=== PATIENT | male | born 1990 | race Two or more races ===

== ENCOUNTER 2019-07-30 09:23 | Emergency (ER) | payer OTHER ==
[~2019-07-30] VITALS: Ht 175.3 cm; Wt 81.6 kg
[2019-07-30] MEDS ORDERED: SODIUM CHLORIDE 0.9% 1,000 ML IV ONE ×2 (09:40)
[2019-07-30 10:34] LABS: Basophils # (auto) 0.1 10 ^3/uL (0-0.2); Basophils % (auto) 0.8 % (0.0-2.0); Eosinophils # (auto) 0.2 10 ^3/uL (0-0.8); Eosinophils % (auto) 1.9 % (0.0-7.0); Hematocrit 47.6 % (41.0-53.0); Hemoglobin 16.1 g/dL (13.5-17.5); Lymphocytes % (auto) 9.2 % (10.0-50.0); Mean Corpuscular Hemoglobin 28.6 pg (28.0-32.0); Mean Corpuscular Hgb Conc. 33.7 g/dL (32.0-36.0); Mean Corpuscular Volume 84.7 fL (80.0-100.0); Monocytes # (auto) 0.7 10 ^3/uL (0-1.3); Monocytes % (auto) 5.8 % (0.0-12.0); Neutrophils # (auto) 9.3 10 ^3/uL (1.6-8.6); Neutrophils % (auto) 82.3 % (37.0-80.0); Nucleated Red Blood Cells % 0.6 %; Platelet Count (auto) 335 10^3/uL (140-450); Red Blood Cells 5.62 10^6/uL (4.5-5.90); Red Cell Distribution Width 13.5 % (11.8-14.3); White Blood Cell 11.3 10^3/uL (4.4-10.8)
[2019-07-30 10:49] LABS: Albumin 4.3 g/dL (3.4-5.0); Calcium 8.8 mg/dL (8.5-10.1); Potassium 3.5 mmol/L (3.5-5.1)
[2019-07-30 10:52] LABS: BUN/Creatinine Ratio 8.2; Bilirubin, Total 0.6 mg/dL (0.2-1.0); Total Protein 8.4 g/dL (6.4-8.2)
[2019-07-30 14:02] VITALS: BP 126/82
== END 2019-07-30 14:26 | disposition home or self-care (01) ==
LOC: ER 09:23
DX: K52.9 Noninfective gastroenteritis and colitis, unspecified (principal); E86.0 Dehydration
CPT/HCPCS: 36415; 71046; 80053; 85025; 96360; 99284; J7030